=== PATIENT | female | born 1970 | race African-American/Black ===

== ENCOUNTER → 2019-11-04 | Day surgery (SDC) | payer OTHER ==
[~2019-11-04] MED LIST: ACETAMINOPHEN/CODEINE 300MG - 30MG TAB ONE; ASPIR 8181 MG PO; BUPIVACAINE 0.25%/EPI 30ML SDV INJ ONE; CALCIUM500 MG PO; CEFAZOLIN SOD 1 GM/NS 50ML 100 ML IV ONE; IBUPROFEN400 MG PO; JANUVIA100 MG PO; LISINOPRIL20 MG PO; MEPERIDINE HCL INJ 25 MG/ML VIAL ONE; METFORMIN HCL1000 MG PO; MULTIVITAMINS1 EAC7 PO; NAPROSYN500 MG PO; SIMVASTATIN20 MG PO; ULTRAM 50MG50 MG PO; VITAMIN D325 MCG PO
[2019-11-04 11:36] LABS: BASOPHILS # (AUTO) 0.1 (0.0-0.1); BASOPHILS % 0.5 % (0.0-1.0); EOSINOPHILS # (AUTO) 0.3 (0.0-0.4); EOSINOPHILS % 3.3 % (0.0-6.0); HEMATOCRIT 40.7 % (34.2-44.1); HEMOGLOBIN 13.3 g/dL (12.0-16.0); LYMPHOCYTES # (AUTO) 3.5 (1.0-3.2); LYMPHOCYTES % 34.6 % (18.0-39.1); MEAN CORPUSCULAR HEMOGLOBIN 30.4 pg (28-32); MEAN CORPUSCULAR HGB CONC 32.7 g/dL (31-35); MEAN CORPUSCULAR VOLUME 93.1 fL (81-99); MONOCYTES # (AUTO) 0.5 (0.2-0.8); MONOCYTES % 4.9 % (4.4-11.3); NEUTROPHILS # (AUTO) 5.7 (2.1-6.9); NEUTROPHILS % 56.3 % (38.7-80.0); PLATELET COUNT 196 x10e3/uL (140-360); RED BLOOD COUNT 4.37 x10e6/uL (3.6-5.1); RED CELL DISTRIBUTION WIDTH 12.4 % (11.7-14.4)
[2019-11-04 11:56] LABS: ALANINE AMINOTRANSFERASE 14 IU/L (0-55); ALBUMIN 4.2 g/dL (3.5-5.0); ALBUMIN/GLOBULIN RATIO 1.3 (0.8-2.0); ALKALINE PHOSPHATASE 67 IU/L (40-150); ANION GAP 15.3 mmol/L (8-16); BLOOD UREA NITROGEN 9 mg/dL (7-26); BUN/CREATININE RATIO 11 (6-25); CALCIUM 9.4 mg/dL (8.4-10.2); CARBON DIOXIDE 24 mmol/L (22-29); CHLORIDE 105 mmol/L (98-107); CREATININE, SERUM 0.79 mg/dL (0.57-1.11); EST GLOMERULAR FILTRATION RATE > 60 ML/MIN (60-); GLUCOSE 133 mg/dL (74-118); POTASSIUM 4.3 mmol/L (3.5-5.1); SODIUM 140 mmol/L (136-145)
[2019-11-04 16:15] VITALS: BP 124/77
--- NOTE | 2019-11-04 20:08 | Operative Report ---
DATE OF PROCEDURE: 11/04/2019 SURGEON: Mihai Brower MD PREOPERATIVE DIAGNOSIS: Slippage of lap band. POSTOPERATIVE DIAGNOSIS: Slippage of lap band. OPERATIVE PROCEDURE: Laparoscopic lap band removal. ANESTHESIA: General. INDICATION: A 49-year-old female with history of abdominal pain with evidence of slippage of the lap band. The patient consented for removal of lap band laparoscopically. Attendant risks discussed. PROCEDURE FINDING: Lap band slippage. DESCRIPTION OF PROCEDURE: The patient was brought to the OR intubated. The abdomen was prepped and draped in sterile fashion. Infraumbilical incision was made and a 5 mm port inserted, insufflation then began under direct vision. Adhesions noted from the omentum to the lap band and a left upper quadrant paraumbilical port site established. Under direct vision, the adhesions of the omentum to the catheter connected to the lap band was taken down from the abdominal wall. We then made incisions directly over the port site in the left upper quadrant and the port was detached from the abdominal wall fascia using sharp dissection and the port was pulled back under laparoscopic vision and the catheter was divided and ports removed. We then proceeded to lift the left lobe of the liver anteriorly using a 10 mm port through the port site. The pseudocapsule covering the lap band was incised using the cautery exposing the buckle, which was then opened and the lap band pulled through its perigastric tract. The port site was dilated with clamps and the lap band was grasped with the laparoscopic grasper and removed through the port site. Operative field was irrigated. Hemostasis was achieved. Fascia closure with 0 Vicryl, skin was closed with subcuticular stitch. The patient was extubated and transported to recovery room. BLOOD LOSS: 5 mL. Mihai Brower MD DNL/MODL /[id number]
== END | disposition home or self-care (01) ==
LOC: OR 10:54
PROVIDERS: ATTEND Surgery
DX: K95.09 Other complications of gastric band procedure (principal); I10 Essential (primary) hypertension; E11.9 Type 2 diabetes mellitus without complications; F32.9 Major depressive disorder, single episode, unspecified; Z72.0 Tobacco use; Z01.812 Encounter for preprocedural laboratory examination; Z11.59 Encounter for screening for other viral diseases; Z79.82 Long term (current) use of aspirin; Z79.84 Long term (current) use of oral hypoglycemic drugs
CPT/HCPCS: 36415; 43774; 80053; 81025; 82948; 85025; 87635; 93005; J0690; J2175; U0002